=== PATIENT | female | born 1960 | race Caucasian/White ===

== ENCOUNTER 2025-04-10 16:39 | Outpatient (CLI) | payer MEDICARE, BC, SELFPAY ==
--- NOTE | ~2025-04-10 | XR_ITS ---
HISTORY: finger pain in right hand COMPARISON: None TECHNIQUE: 3 views of the right hand were performed. FINDINGS: Cortical irregularity of the tuft of the third and fourth digit are identified for which acute versus subacute fracture deformities are present. The joint spaces are preserved. The carpal arcs are intact. Mild radiocarpal joint space narrowing with sclerosis of the distal radius is present. No significant soft tissue swelling. No radiopaque foreign body is identified. IMPRESSION: Irregularity of the agusto of the third and fourth digits for which acute versus subacute fracture def ormities are suspected. Reviewed, dictated and finalized at location A. IMPRESSION: Irregularity of the agusto of the third and fourth digits for which acute versus subacute fracture deformities are suspected.
== END 2025-04-10 16:40 | disposition home or self-care (01) ==
DX: M79.644 Pain in right finger(s) (principal)
CPT/HCPCS: 73130